=== PATIENT | female | born 1935 | race Caucasian/White ===

== ENCOUNTER 2019-03-25 14:07 | Emergency (ER) | payer OTHER ==
[2019-03-25] MEDS ORDERED: ONDANSETRON 4 MG/2 ML VIAL ONE (14:22)
[2019-03-25] MEDS ORDERED: MORPHINE 2 MG/ML SYR ONE ×2 (14:22→15:23)
[2019-03-25 14:46] LABS: Absolute Lymphocytes (CBC) 1.3 K/uL (0.7-4.9); Basophils % 0.6 % (0-1.3); Hematocrit 35.7 % (36.0-45.0); Lymphocytes % 21.3 % (15.3-44.8); MPV 9.1 fL (7.6-11.3); RBC Red Blood Cell Count 3.64 M/uL (3.86-4.86)
--- NOTE | 2019-03-25 15:04 | RAD REPORT ---
EXAM DESCRIPTION: CT - Head Brain Wo Cont - 03/25/2019 2:49 pm CLINICAL HISTORY: Head injury, anticoagulation therapy, prior surgical procedure COMPARISON: None. TECHNIQUE: Axial 5 mm thick images of the head were obtained without IV contrast. All CT scans are performed using dose optimization technique as appropriate and may include automated exposure control or mA/KV adjustment according to patient size. FINDINGS: No intracranial hemorrhage, mass, edema or shift of mid-line structures. No acute cortical based infarction. No cortical edema or sulcal effacement. Atrophy and chronic ischemic changes are p resent. Ventricles are in proportion to volume loss. 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 No acute finding in this region. There are related postsu rgical changes to the left occipital bone. Mastoid air cells and visualized portions of the paranasal sinuses are clear. No acute bony findings. IMPRESSION: Negative non-contrast CT head examination for acute or significant finding.
[2019-03-25 15:06] LABS: Protime INR 2.06
[2019-03-25] MEDS ORDERED: LIDOCAINE 1% MPF 5 ML VIAL ONE (15:22)
--- NOTE | 2019-03-25 15:37 | RAD REPORT ---
EXAM DESCRIPTION: RAD - Wrist Left 3 View - 03/25/2019 2:42 pm CLINICAL HISTORY: Fall, left wrist pain COMPARISON: None. FINDINGS: Transverse fracture is present in the distal radial metaphysis. There is a sagittally orie nted fracture that extends to the articular surface. Dorsal angulation of approximately 20 degrees is present resulting in dorsal impaction along the fracture plane. No ulna fracture seen. Radiocarpal joint space narrowing seen. No carpal bone acute finding. Soft tissue swelling is present . No foreign body. IMPRESSION: Comminuted distal radius fracture with dorsal angulation and dorsal impaction.
--- NOTE | 2019-03-25 16:57 | ER ---
Nurse's Notes [facility] Name: Apoorva Phillips Age: 83 yrs Sex: Female : 1935 Arrival Date: 03/25/2019 Time: 14:21 Bed 26 Private MD: Diagnosis: Displaced comminuted fracture of shaft of radius, left arm;Superficial injury of head Presentation: 03/25 14:00 Trauma event details: Injury occurred in the [facility], Injury occurred: at rv home. Injury occurred: March 25, 2019 Injury occurred at: 13:30. 15:04 Presenting complaint: EMS states: she was cleaning when she tripped herself backwards rv hitting her head. denies any LOC. she is on blood thinner. she has pain on her left wrist. Transition of care: patient was not received from another setting of care. Onset of symptoms was March 25, 2019 at 13:30. Risk Assessment: Do you want to hurt yourself or someone else? Patient reports no desire to harm self or others. Initial Sepsis Screen: Does the patient meet any 2 criteria? No. Patient's initial sepsis screen is negative. Does the patient have a suspected source of infection? No. Patient's initial sepsis screen is negative. Care prior to arrival: Splint applied. IV initiated. 20 GA, in the right forearm. 15:04 [facility] 15:04 Acuity: YONNY 3 rv 15:13 Mechanism of Injury: Fall from standing position. rv Trauma Activation: Alert Physician: ED Physician; Name: DR HALE; Notified At: 14:00; Arrived At: 14:00 Physician: General Surgeon; Name: ; Notified At: 14:00; Arrived At: Physician: Radiology; Name: ; Notified At: 14:00; Arrived At: Physician: Respiratory; Name: ; Notified At: 14:00; Arrived At: Physician: Lab; Name: ; Notified At: 14:00; Arrived At: Historical: - Allergies: 15:21 metformin; rv - Home Meds: 15:21 Xarelto oral oral [Active]; rv - PMHx: 15:21 Diabetes - NIDDM; Hypertension; Atrial Fib; brain aneurysm; rv - PSHx: 15:21 brain tumor; rv - Immunization history:: Adult Immunizations up to date, Last tetanus immunization: up to date. - Social history:: Smoking status: Patient/guardian denies using tobacco, never smoked. - Family history:: not pertinent. - Ebola Screening: : No symptoms or risks identified at this time. - Hospitalizations: : No recent hospitalization is reported. Screenin:18 Abuse screen: Denies threats or abuse. Denies injuries from another. Nutritional rv screening: No deficits noted. Tuberculosis screening: No symptoms or risk factors identified. 15:25 Fall Risk Fall in past 12 months (25 points). Secondary diagnosis (15 points) impaired rv mobility, No IV (0 pts). Ambulatory Aid- Crutches/Cane/Walker (15 pts). Gait- Impaired (20 pts.). Mental Status- Oriented to own ability (0 pts). Total Joshi Fall Scale indicates High Risk Score (45 or more points). Fall prevention measures have been instituted. Side Rails Up X 2 Placed Close to Nursing Station Frequent Obs/Assessments Occuring Family Present and informed to notify staff if the need to leave the bedside As available patient and family educated on Fall Prevention Program and Strategies. Primary Survey: 15:12 NO uncontrolled hemorrhage observed. Breathing/Chest: Respiratory pattern: regular. rv Circulation: Cardiac rhythm: atrial fibrillation. Disability Alert. Exposure/Environment: All clothing and personal items were removed. Forensic evidence collection is not deemed to be indicated at this time. Items placed in patient belonging bag. There is no evidence of uncontrolled external bleeding. Obvious injury(ies) are noted at this time: left wrist. 15:35 Reassessment Airway Airway Patent Breathing/Chest Respiratory pattern Regular rv Circulation Heart rhythm Atrial fibrillation Disability Alert. Assessment: 15:07 General: Appears in no apparent distress. uncomfortable, Behavior is calm, cooperative. rv Pain: Complains of pain in left wrist. Neuro: Level of Consciousness is awake, alert, obeys commands, Oriented to person, place, time, situation. EENT: No signs and/or symptoms were reported regarding the EENT system. Cardiovascular: Patient's skin is warm and dry. Respiratory: Airway is patent. GI: No signs and/or symptoms were reported involving the gastrointestinal system. : No signs and/or symptoms were reported regarding the genitourinary system. Derm: Wound noted right arm Wound is abrasion. Derm:. Derm: Musculoskeletal: Bony deformity noted of right wrist. Musculoskeletal:. Musculoskeletal: Swelling present in right parietal area and right wrist. Injury Description: Deformity sustained to right wrist is angulated. 15:36 Reassessment: radiology and blood work report explained by Dr Hale to patient and rv family. plans to do temporary splinting and pain management. Vital Signs: 14:00 BP 117 / 92; Pulse 106; Resp 15; Temp 97.9; Pulse Ox 100% ; Weight 68.04 kg; rv 14:30 BP 101 / 72; Pulse 103; Resp 16; Pulse Ox 98% on R/A; rv 15:00 BP 98 / 75; Pulse 94; Resp 15; Pulse Ox 99% on R/A; rv 15:30 BP 112 / 71; Pulse 99; Resp 16; Pulse Ox 99% on R/A; rv 17:16 BP 110 / 74; Pulse 101; Resp 16; Temp 98; Pulse Ox 98% ; rv Rome Coma Score: 14:00 Eye Response: spontaneous(4). Verbal Response: oriented(5). Motor Response: obeys rv commands(6). Total: 15. 14:24 Eye Response: spontaneous(4). Verbal Response: oriented(5). Motor Response: obeys rn commands(6). Total: 15. 16:53 Eye Response: spontaneous(4). Verbal Response: oriented(5). Motor Response: obeys rn commands(6). Total: 15. Trauma Score (Adult): 14:00 Eye Response: spontaneous(1); Verbal Response: oriented(1); Motor Response: obeys rv commands(2); Systolic BP: > 89 mm Hg(4); Respiratory Rate: 10 to 29 per min(4); Rome Score: 15; Trauma Score: 12 ED Course: 14:00 Maintain EMS IV. Dressing intact. Good blood return noted. Site clean \T\ dry. Gauge \T\ rv site: g 20 Right forearm. 14:00 Thermoregulation: warm blanket given to patient. rv 14:00 Patient has correct armband on for positive identification. Bed in low position. Call rv light in reach. Side rails up X 1. Pulse ox on. NIBP on. 14:21 Patient arrived in ED. rn 14:21 Pelon Hale MD is Attending Physician. rn 14:40 XRAY Wrist LEFT 3 view In Process Unspecified. EDMS 14:49 CT Head Brain wo Cont In Process Unspecified. EDMS 14:49 CT completed. Patient tolerated procedure well. Patient moved back from CT. bq 15:02 Dante Dickens RN is Primary Nurse. rv 15:07 Triage completed. rv 15:18 Patient maintains SpO2 saturation greater than 95% on room air. rv 15:23 Arm band placed on right wrist. rv 16:15 XRAY Wrist LEFT 2 view In Process Unspecified. EDMS 16:54 Bacilio Dumont MD is Referral Physician. rn 17:17 No provider procedures requiring assistance completed. IV discontinued, intact, rv bleeding controlled, No redness/swelling at site. Pressure dressing applied. Administered Medications: 14:03 Drug: Zofran 4 mg Route: IVP; Site: right forearm; rv 15:37 Follow up: Response: No adverse reaction rv 14:05 Drug: morphine 2 mg Route: IVP; Site: right forearm; rv 15:37 Follow up: Response: Pain is decreased rv 15:41 Drug: morphine 2 mg Route: IVP; Site: right forearm; rv 17:05 Follow up: Response: No adverse reaction; Pain is decreased rv 17:15 Drug: Ibapah 5 mg-325 mg 1 tabs Route: PO; rv 17:16 Follow up: Response: Medication administered at discharge. rv Output: 17:19 Urine: 200ml (Voided); Total: 200ml. rv Outcome: 16:54 Discharge ordered by . rn 17:18 Discharged to home via wheelchair, with family. rv 17:18 Condition: improved 17:18 Discharge instructions given to family, Instructed on discharge instructions, follow up and referral plans. medication usage, Demonstrated understanding of instructions, follow-up care, medications, splint care, Prescriptions given X 1. 17:18 Patient's length of stay in the Emergency Department was greater than 2 hours. RADIOLOGY AND PROCEDUREPatient's length of stay extended due to 17:19 Patient left the ED. rv Signatures: Dispatcher [employer] EDMS EdeMimi Pelon Hale MD MD rn Vicente, Ronaldo, RN RN rv Corrections: (The following items were deleted from the chart) 15:18 15:18 Maintain EMS IV. Dressing intact. Good blood return noted. Site clean \T\ dry. rv Gauge \T\ site: g 20 Right forearm. rv 15:18 Fall Risk None identified. rv rv
--- NOTE | 2019-03-25 16:57 | EDPHYS ---
Physician Documentation [facility] Name: Apoorva Phillips Age: 83 yrs Sex: Female : 1935 Arrival Date: 03/25/2019 Time: 14:21 Bed 26 Private MD: ED Physician Pelon Hale HPI: 03/25 14:24 This 83 yrs old Female presents to ER via Unassigned with complaints of head rn injury, fall. 14:24 The patient or guardian reports injury, pain. The complaints affect the right occipital rn area. Onset: The symptoms/episode began/occurred just prior to arrival. Severity of symptoms: At their worst the symptoms were mild, in the emergency department the symptoms are unchanged. The patient has not experienced similar symptoms in the past. Reports fall from standing, hit head on hard concrete floor, no LOC, reports on xarelto, has had brain tumor removed and brain aneurysm in past. No vomiting. No focal neurological complaints. Also braced fall with left wrist, with pain and swelling.. Historical: - Allergies: 15:21 metformin; rv - Home Meds: 15:21 Xarelto oral oral [Active]; rv - PMHx: 15:21 Diabetes - NIDDM; Hypertension; Atrial Fib; brain aneurysm; rv - PSHx: 15:21 brain tumor; rv - Immunization history:: Adult Immunizations up to date, Last tetanus immunization: up to date. - Social history:: Smoking status: Patient/guardian denies using tobacco, never smoked. - Family history:: not pertinent. - Ebola Screening: : No symptoms or risks identified at this time. - Hospitalizations: : No recent hospitalization is reported. ROS: 14:24 Constitutional: Negative for fever, chills, and weight loss, Eyes: Negative for injury, rn pain, redness, and discharge, Neck: Negative for injury, pain, and swelling, Cardiovascular: Negative for chest pain, palpitations, and edema, Respiratory: Negative for shortness of breath, cough, wheezing, and pleuritic chest pain, Abdomen/GI: Negative for abdominal pain, nausea, vomiting, diarrhea, and constipation, Back: Negative for injury and pain, MS/Extremity: + left wrist pain and swelling Skin: Negative for injury, rash, and discoloration, Neuro: Negative for headache, weakness, numbness, tingling, and seizure. Exam: 14:24 Constitutional: This is a well developed, well nourished patient who is awake, alert, rn and in no acute distress. Head/Face: Normocephalic, small hematoma right occipital region, no depression, no laceration Eyes: Pupils equal round and reactive to light, extra-ocular motions intact. Lids and lashes normal. Conjunctiva and sclera are non-icteric and not injected. Cornea within normal limits. Periorbital areas with no swelling, redness, or edema. ENT: no oral trauma Neck: Trachea midline, no thyromegaly or masses palpated, and no cervical lymphadenopathy. Supple, full range of motion without nuchal rigidity, or vertebral point tenderness. No Meningismus. Abdomen/GI: soft, non-tender MS/ Extremity: Pulses equal, no cyanosis. + tenderness over distal left radius, with swelling and painful ROM Neuro: Awake and alert, GCS 15, oriented to person, place, time, and situation. Cranial nerves II-XII grossly intact. Motor strength 5/5 in all extremities. Sensory grossly intact. Cerebellar exam normal. Vital Signs: 14:00 BP 117 / 92; Pulse 106; Resp 15; Temp 97.9; Pulse Ox 100% ; Weight 68.04 kg; rv 14:30 BP 101 / 72; Pulse 103; Resp 16; Pulse Ox 98% on R/A; rv 15:00 BP 98 / 75; Pulse 94; Resp 15; Pulse Ox 99% on R/A; rv 15:30 BP 112 / 71; Pulse 99; Resp 16; Pulse Ox 99% on R/A; rv 17:16 BP 110 / 74; Pulse 101; Resp 16; Temp 98; Pulse Ox 98% ; rv Vimal Coma Score: 14:00 Eye Response: spontaneous(4). Verbal Response: oriented(5). Motor Response: obeys rv commands(6). Total: 15. 14:24 Eye Response: spontaneous(4). Verbal Response: oriented(5). Motor Response: obeys rn commands(6). Total: 15. 16:53 Eye Response: spontaneous(4). Verbal Response: oriented(5). Motor Response: obeys rn commands(6). Total: 15. Trauma Score (Adult): 14:00 Eye Response: spontaneous(1); Verbal Response: oriented(1); Motor Response: obeys rv commands(2); Systolic BP: > 89 mm Hg(4); Respiratory Rate: 10 to 29 per min(4); Campton Score: 15; Trauma Score: 12 Procedures: 16:02 Splinting: Splint applied to left wrist using sugartong left wrist splint. applied by rn myself. post reduction film - reveals improved alignment, Examined by me, post splint application: neurovascular intact, 2+ distal pulses palpable, brisk capillary refill noted, Patient tolerated well. Reduction: of the left wrist, using traction, manipulation, Immobilized with wrist splint, Patient tolerated well. Post reduction film - reveals improved alignment. Nerve block: Hematoma block of left distal radius. Medication: Lidocaine 1% without epinephrine Amount: 5 mls were injected, Effect: the patient's symptoms are improved, Set up for procedure. Performed by Pelon Hale MD Patient tolerated well. MDM: 14:21 Patient medically screened. rn 15:05 Test interpretation: by ED physician or midlevel provider: plain radiologic studies, rn Xray left wrist with mild dorsally angulated distal radius fracture. 16:53 Differential diagnosis: Contusion of Intracranial bleed- Concussion cerebral contusion, rn wrist fracture. Data reviewed: vital signs, nurses notes, lab test result(s), radiologic studies, CT scan, plain films, and as a result, I will discharge patient. Counseling: I had a detailed discussion with the patient and/or guardian regarding: the historical points, exam findings, and any diagnostic results supporting the discharge/admit diagnosis, lab results, radiology results, the need for outpatient follow up, to return to the emergency department if symptoms worsen or persist or if there are any questions or concerns that arise at home. Response to treatment: the patient's symptoms have markedly improved after treatment, and as a result, I will discharge patient. Special discussion: I discussed with the patient/guardian in detail that at this point there is no indication for admission to the hospital. It is understood, however, that if the symptoms persist or worsen the patient needs to return immediately for re-evaluation. Based on the history and exam findings, there is no indication for further emergent testing or inpatient evaluation. I discussed with the patient/guardian the need to see the orthopedic surgeon for further evaluation of the symptoms. 03/25 14:22 Order name: CBC with Diff; Complete Time: 15:16 rn 03/25 14:22 Order name: Basic Metabolic Panel; Complete Time: 15:16 rn 03/25 14:22 Order name: Protime (+inr); Complete Time: 15:16 rn 03/25 14:22 Order name: Ptt, Activated; Complete Time: 15:16 rn 03/25 14:22 Order name: CT Head Brain wo Cont; Complete Time: 15:16 rn 03/25 14:22 Order name: XRAY Wrist LEFT 3 view; Complete Time: 15:47 rn 03/25 14:22 Order name: IV Start; Complete Time: 15:03 rn 03/25 15:22 Order name: Splint - Sugar Tong - Forearm; Complete Time: 16:05 rn 03/25 16:02 Order name: XRAY Wrist LEFT 2 view; Complete Time: 17:09 rn Administered Medications: 14:03 Drug: Zofran 4 mg Route: IVP; Site: right forearm; rv 15:37 Follow up: Response: No adverse reaction rv 14:05 Drug: morphine 2 mg Route: IVP; Site: right forearm; rv 15:37 Follow up: Response: Pain is decreased rv 15:41 Drug: morphine 2 mg Route: IVP; Site: right forearm; rv 17:05 Follow up: Response: No adverse reaction; Pain is decreased rv 17:15 Drug: Elgin 5 mg-325 mg 1 tabs Route: PO; rv 17:16 Follow up: Response: Medication administered at discharge. rv Disposition: 03/25/19 16:54 Discharged to Home. Impression: Displaced comminuted fracture of shaft of radius, left arm, Superficial injury of head. - Condition is Stable. - Discharge Instructions: Head Injury, Adult, Wrist Fracture Treated With Immobilization. - Prescriptions for Tramadol 50 mg Oral Tablet - take 1 tablet by ORAL route every 8 hours as needed; 20 tablet. - Medication Reconciliation Form, Thank You Letter, Antibiotic Education, Prescription Opioid Use form. - Follow up: Bacilio Dumont MD; When: 5 - 6 days; Reason: Recheck today's complaints, Re-evaluation by your physician. - Problem is new. - Symptoms have improved. Signatures: Dispatcher [employer] EDMS Pelon Hale MD MD rn Vicente, Ronaldo, RN RN rv Corrections: (The following items were deleted from the chart) 16:55 16:54 03/25/2019 16:54 Discharged to Home. Impression: Displaced comminuted fracture of rn shaft of radius, left arm. Condition is Stable. Forms are Medication Reconciliation Form, Thank You Letter, Antibiotic Education, Prescription Opioid Use. Follow up: Dr. Bacilio Dumont; When: 5 - 6 days; Reason: Recheck today's complaints, Re-evaluation by your physician. Problem is new. Symptoms have improved. rn 17:19 16:55 03/25/2019 16:54 Discharged to Home. Impression: Displaced comminuted fracture of rv shaft of radius, left arm; Superficial injury of head. Condition is Stable. Forms are Medication Reconciliation Form, Thank You Letter, Antibiotic Education, Prescription Opioid Use. Follow up: Dr. Bacilio Dumont; When: 5 - 6 days; Reason: Recheck today's complaints, Re-evaluation by your physician. Problem is new. Symptoms have improved. rn
--- NOTE | 2019-03-25 17:04 | RAD REPORT ---
EXAM DESCRIPTION: RAD - Wrist Left 2 View - 03/25/2019 4:15 pm FINDINGS: PA and lateral views obtained labeled post reduction. Cast material has been placed. Fract ure fragments have been returned to anatomic alignment and position.
[2019-03-25] MEDS ORDERED: HYDROCODONE/APAP 5/325 MG TAB ONE (17:07)
--- NOTE | 2019-03-26 07:48 | EKG ---
Test Date: 2019-03-25 Test Time: 15:23:51 Gun Welder: MARIET MEASUREMENT RESULTS: Intervals: Rate: 95 IL: QRSD: 74 QT: 382 QTc: 480 [place]: P: IL: QRS: 55 T: -77 INTERPRETIVE STATEMENTS: Atrial fibrillation ST & T wave abnormality, consider anterior ischemia or digitalis effect Prolonged QT Abnormal ECG No previous ECG available for comparison Electronically Signed On 03-26-19 07:46:46 CDT by Walker Gusman
== END 2019-03-25 17:19 | disposition home or self-care (01) ==
LOC: ER 14:07
DX: S52.352A Displaced comminuted fracture of shaft of radius, left arm, initial encounter for closed fracture (principal); S00.90XA Unspecified superficial injury of unspecified part of head, initial encounter; W18.30XA Fall on same level, unspecified, initial encounter; E11.9 Type 2 diabetes mellitus without complications; I10 Essential (primary) hypertension; I48.91 Unspecified atrial fibrillation; Z88.8 Allergy status to other drugs, medicaments and biological substances; Z79.01 Long term (current) use of anticoagulants
CPT/HCPCS: 93005; 85025; 80048; 36415; 85610; 85730; 70450; 73110; 73100; 96375; 96374; 99285; J2270 ×2; J2405

== ENCOUNTER 2019-04-14 10:41 | Emergency (ER) | payer OTHER ==
--- NOTE | 2019-04-14 12:10 | ER ---
Nurse's Notes [facility] Name: Apoorva Phillips Age: 83 yrs Sex: Female : 1935 Arrival Date: 04/14/2019 Time: 10:44 Bed Waiting Private MD: Diagnosis: Presentation: 04/14 10:48 Presenting complaint: Patient states: L hip and L low back pain x 3 days. Patient fell ss March 25, but states at that time she had wrist pain and no other pain at that time. Transition of care: patient was not received from another setting of care. Onset of symptoms was April 11, 2019. Risk Assessment: Do you want to hurt yourself or someone else? Patient reports no desire to harm self or others. Initial Sepsis Screen: Does the patient meet any 2 criteria? No. Patient's initial sepsis screen is negative. Does the patient have a suspected source of infection? No. Patient's initial sepsis screen is negative. Care prior to arrival: None. 10:48 Method Of Arrival: Wheelchair 10:48 Acuity: YONNY 4 ss Historical: - Allergies: 10:50 metformin; ss - PMHx: 10:50 Atrial Fib; brain aneurysm; Diabetes - NIDDM; Hypertension; ss - PSHx: 10:50 brain tumor; ss - Immunization history:: Adult Immunizations up to date. - Social history:: Smoking status: Patient/guardian denies using tobacco. - Ebola Screening: : Patient denies exposure to infectious person Patient denies travel to an Ebola-affected area in the 21 days before illness onset. Assessment: 12:09 Reassessment: Patient left due to wait time/ surge. ss Vital Signs: 10:50 BP 126 / 78; Pulse 96; Resp 16; Temp 97.7(O); Pulse Ox 98% on R/A; Weight 72.57 kg; ss Height 5 ft. 3 in. (160.02 cm); Pain 4/10; 10:50 Body Mass Index 28.34 (72.57 kg, 160.02 cm) ED Course: 10:44 Patient arrived in ED. as 10:50 Triage completed. ss 10:50 Arm band placed on right wrist. ss 12:06 Bart Mar LVN is Primary Nurse. em 12:09 No provider procedures requiring assistance completed. Patient did not have IV access ss during this emergency room visit. Administered Medications: No medications were administered Outcome: 12:09 Eloped from waiting room, before seeing physician ss 12:09 unknown 12:10 Patient left the ED. ss Signatures: Bart Mar LVN LVN Bita Phan Shelby, SHANIQUA RN ss Corrections: (The following items were deleted from the chart) 10:53 10:48 Presenting complaint: Patient states: L hip pain x 3 days. Patient fell March, but states at that time she had wrist pain and no other pain at that time. ss
== END 2019-04-14 12:10 | disposition left against medical advice (07) ==
LOC: ER 10:41
DX: Z53.21 Procedure and treatment not carried out due to patient leaving prior to being seen by health care provider (principal)
CPT/HCPCS: 99281